=== PATIENT | female | born 1960 | race Caucasian/White ===

== ENCOUNTER 2019-08-23 01:38 | Emergency (ER) | payer BC ==
[2019-08-23] MEDS ORDERED: Zofran 4 MG/2 ML VIAL IV ONE (01:51)
[2019-08-23] MEDS ORDERED: Pepcid 20 MG VIAL IV ONE ×2 (01:51→02:20)
[2019-08-23] MEDS ORDERED: PROTONIX 40 MG IV IV ONE ×2 (01:51→02:21)
[2019-08-23] MEDS ORDERED: Sodium Chloride 0.9% 1000 ML 1,000 ML IV STA (01:51)
[2019-08-23] MEDS ORDERED: BENADRYL 50 MG/ML IV ONE (01:51)
[2019-08-23] MEDS ORDERED: MORPHINE SULFATE 4 MG INJ IV ONE (01:51)
--- NOTE | 2019-08-23 01:51 | ERPHSYRPT ---
- History of Present Illness Time Seen by Provider: 08/23/19 01:48 Historian: patient, family Exam Limitations: no limitations Physician History: pt is 58 year old with epigastric pain radiating bilateral and her identical twin previously had GB dx; some vomiting, no trauma; not short of breath Timing/Duration: today Activities at Onset: none Quality: sharpness, stabbing Abdominal Pain Onset Location: RUQ, LUQ, epigastric Pain Radiation: chest Severity of Pain-Max: moderate Severity of Pain-Current: moderate Modifying Factors: Improves With: vomiting Associated Symptoms: nausea, vomiting Previous symptoms: no prior history Allergies/Adverse Reactions: No Known Drug Allergies Allergy (Unverified 08/23/19 02:03) Home Medications: Sertraline HCl 100 mg PO DAILY 08/23/19 [History] - Review of Systems Constitutional: No Fever, No Chills Eyes: No Symptoms Ears, Nose, & Throat: No Symptoms Respiratory: No Cough, No Dyspnea Cardiac: Chest Pain, No Edema, No Syncope Abdominal/Gastrointestinal: Abdominal Pain, Nausea, Vomiting, No Diarrhea Genitourinary Symptoms: No Dysuria Musculoskeletal: No Back Pain, No Neck Pain Skin: No Rash Neurological: No Dizziness, No Focal Weakness, No Sensory Changes Psychological: No Symptoms Endocrine: No Symptoms All Other Systems: Reviewed and Negative - Past Medical History Pertinent Past Medical History: Yes Neurological History: No Pertinent History Cardiac History: No Pertinent History Respiratory History: Bronchitis Endocrine Medical History: No Pertinent History Musculoskeletal History: Arthritis - Nursing Vital Signs Nursing Vital Signs: Initial Vital Signs Temperature 97.8 F 08/23/19 01:41 Pulse Rate 89 08/23/19 01:41 Respiratory Rate 14 08/23/19 01:41 Blood Pressure 153/97 08/23/19 01:41 O2 Sat by Pulse Oximetry 99 08/23/19 01:41 Pain Scale Pain Intensity 0 - Physical Exam General Appearance: no apparent distress, alert Eye Exam: PERRL/EOMI, eyes nml inspection Ears, Nose, Throat Exam: normal ENT inspection, pharynx normal, moist mucous membranes Neck Exam: normal inspection, non-tender, supple, full range of motion Respiratory Exam: normal breath sounds, lungs clear, No respiratory distress Cardiovascular Exam: regular rate/rhythm, normal heart sounds Gastrointestinal/Abdomen Exam: soft, No tenderness, No mass Pelvic Exam: deferred Rectal Exam: deferred Back Exam: normal inspection, normal range of motion, No CVA tenderness, No vertebral tenderness Extremity Exam: normal inspection, normal range of motion, pelvis stable Neurologic Exam: alert, oriented x 3, cooperative, normal mood/affect, nml cerebellar function, sensation nml, No motor deficits Skin Exam: normal color, warm, dry - Course Nursing assessment & vital signs reviewed: Yes EKG Interpreted by Me: Sinus Rhythm, NORMAL AXIS, NORMAL INTERVALS, Non- specific ST Changes Ordered Tests: Active Orders 24 hr Category Date Time Status EKG-ER Only STAT Care 08/23/19 01:51 Active IV Insertion STAT Care 08/23/19 01:51 Active ABDOMEN AND PELVIS W/0 CONTRAS [CT] Stat Exams 08/23/19 01:52 Taken AMYLASE Stat Lab 08/23/19 02:19 Completed CBC W DIFF Stat Lab 08/23/19 02:19 Completed CMP Stat Lab 08/23/19 02:19 Completed LIPASE Stat Lab 08/23/19 02:19 Completed Lactic Acid Stat Lab 08/23/19 02:38 Completed TROPONIN Q3H Lab 08/23/19 02:19 Completed TROPONIN Q3H Lab 08/23/19 04:17 Completed TROPONIN Q3H Lab 08/23/19 08:00 Ordered TROPONIN Q3H Lab 08/23/19 11:00 Ordered TROPONIN Q3H Lab 08/23/19 14:00 Ordered UA W/RFX UR CULTURE Stat Lab 08/23/19 02:42 Completed Medication Summary Discontinued Medications Generic Name Dose Route Start Last Admin Trade Name Freq PRN Reason Stop Dose Admin Diphenhydramine HCl 25 mg 08/23/19 01:51 08/23/19 02:44 Benadryl 50 Mg/Ml IV 08/23/19 01:52 25 mg STAT ONE Administration Diphenhydramine HCl Confirm 08/23/19 02:20 Benadryl 50 Mg/Ml Administered 08/23/19 02:21 Dose 50 mg .ROUTE .STK-MED ONE Famotidine 20 mg 08/23/19 01:51 08/23/19 02:43 Pepcid 20 Mg Vial IV 08/23/19 01:52 20 mg STAT ONE Administration Famotidine Confirm 08/23/19 02:20 Pepcid 20 Mg Vial Administered 08/23/19 02:21 Dose 20 mg IV .STK-MED ONE Sodium Chloride 1,000 mls @ 999 mls/hr 08/23/19 01:51 08/23/19 03:27 Sodium Chloride 0.9% 1000 Ml IV 08/23/19 02:51 Infused .Q1H1M STA Infusion Sodium Chloride Confirm 08/23/19 02:21 Sodium Chloride 0.9% 1000 Ml Administered 08/23/19 02:22 Dose 1,000 mls @ ud .ROUTE .STK-MED ONE Morphine Sulfate 4 mg 08/23/19 01:51 08/23/19 02:43 Morphine Sulfate 4 Mg Inj IV 08/23/19 01:52 4 mg STAT ONE Administration Morphine Sulfate Confirm 08/23/19 02:21 Morphine Sulfate 4 Mg Inj Administered 08/23/19 02:22 Dose 4 mg .ROUTE .STK-MED ONE Ondansetron HCl 4 mg 08/23/19 01:51 08/23/19 02:31 Zofran 4 Mg/2 Ml Vial IV 08/23/19 01:52 4 mg STAT ONE Administration Ondansetron HCl Confirm 08/23/19 02:20 Zofran 4 Mg/2 Ml Vial Administered 08/23/19 02:21 Dose 4 mg .ROUTE .STK-MED ONE Pantoprazole Sodium 40 mg 08/23/19 01:51 08/23/19 02:45 Protonix 40 Mg Iv IV 08/23/19 01:52 40 mg STAT ONE Administration Pantoprazole Sodium Confirm 08/23/19 02:21 Protonix 40 Mg Iv Administered 08/23/19 02:22 Dose 40 mg IV .STK-MED ONE Lab/Rad Data: Laboratory Result Diagrams 08/23/19 02:19 08/23/19 02:19 Laboratory Results 08/23/19 08/23/19 08/23/19 Range/Units 04:17 02:42 02:38 WBC (4.0-10.5) K/mm3 RBC (4.1-5.4) M/mm3 Hgb (12.0-16.0) gm/dl Hct (35-47) % MCV (78-100) fl MCH (26-32) pg MCHC (32-36) g/dl RDW (11.5-14.0) % Plt Count (150-450) K/mm3 MPV (6-9.5) fl Gran % (36.0-66.0) % Eos # (Auto) (0-0.5) Absolute Lymphs (auto) (1.0-4.6) Absolute Monos (auto) (0.0-1.3) Lymphocytes % (24.0-44.0) % Monocytes % (0.0-12.0) % Eosinophils % (0.00-5.0) % Basophils % (0.0-0.4) % Absolute Granulocytes (1.4-6.9) Basophils # (0-0.4) Sodium (137-145) mmol/L Potassium (3.5-5.1) mmol/L Chloride (98-107) mmol/L Carbon Dioxide (22-30) mmol/L Anion Gap (5-15) MEQ/L BUN (7-17) mg/dL Creatinine (0.52-1.04) mg/dL Estimated GFR ML/MIN Glucose (74-106) mg/dL Lactic Acid 1.2 (0.4-2.0) Calcium (8.4-10.2) mg/dL Total Bilirubin (0.2-1.3) mg/dL AST (14-36) U/L ALT (0-35) U/L Alkaline Phosphatase (38-126) U/L Troponin I < 0.012 (0.000-0.034) ng/mL Serum Total Protein (6.3-8.2) g/dL Albumin (3.5-5.0) g/dL Amylase (30-110) U/L Lipase (23-300) U/L Urine Color YELLOW (YELLOW) Urine Appearance SLIGHTLY CLOUDY (CLEAR) Urine pH 5.0 (5-6) Ur Specific Hamilton 1.021 (1.005-1.025) Urine Protein NEGATIVE (Negative) Urine Ketones NEGATIVE (NEGATIVE) Urine Blood NEGATIVE (0-5) Brandin/ul Urine Nitrite NEGATIVE (NEGATIVE) Urine Bilirubin NEGATIVE (NEGATIVE) Urine Urobilinogen NEGATIVE (0-1) mg/dL Ur Leukocyte Esterase TRACE (NEGATIVE) Urine WBC (Auto) 6-10 (0-5) /HPF Urine RBC (Auto) 0-2 (0-2) /HPF U Epithel Cells (Auto) NONE (FEW) /HPF Urine Bacteria (Auto) NONE (NEGATIVE) /HPF Urine Mucus (Auto) SLIGHT (NEGATIVE) /HPF Urine Culture Reflexed NO (NO) Urine Glucose NEGATIVE (NEGATIVE) mg/dL 08/23/19 08/23/19 08/23/19 Range/Units 02:19 02:19 02:19 WBC 8.3 (4.0-10.5) K/mm3 RBC 4.83 (4.1-5.4) M/mm3 Hgb 13.8 (12.0-16.0) gm/dl Hct 42.3 (35-47) % MCV 87.6 (78-100) fl MCH 28.6 (26-32) pg MCHC 32.6 (32-36) g/dl RDW 15.5 H (11.5-14.0) % Plt Count 246 (150-450) K/mm3 MPV 10.3 H (6-9.5) fl Gran % 70.7 H (36.0-66.0) % Eos # (Auto) 0.30 (0-0.5) Absolute Lymphs (auto) 1.53 (1.0-4.6) Absolute Monos (auto) 0.58 (0.0-1.3) Lymphocytes % 18.5 L (24.0-44.0) % Monocytes % 7.0 (0.0-12.0) % Eosinophils % 3.6 (0.00-5.0) % Basophils % 0.2 (0.0-0.4) % Absolute Granulocytes 5.86 (1.4-6.9) Basophils # 0.02 (0-0.4) Sodium 142 (137-145) mmol/L Potassium 3.7 (3.5-5.1) mmol/L Chloride 105 (98-107) mmol/L Carbon Dioxide 30 (22-30) mmol/L Anion Gap 10.8 (5-15) MEQ/L BUN 19 H (7-17) mg/dL Creatinine 0.67 (0.52-1.04) mg/dL Estimated GFR > 60.0 ML/MIN Glucose 110 H (74-106) mg/dL Lactic Acid (0.4-2.0) Calcium 10.2 (8.4-10.2) mg/dL Total Bilirubin 0.40 (0.2-1.3) mg/dL AST 35 (14-36) U/L ALT 42 H (0-35) U/L Alkaline Phosphatase 81 (38-126) U/L Troponin I < 0.012 (0.000-0.034) ng/mL Serum Total Protein 7.8 (6.3-8.2) g/dL Albumin 4.4 (3.5-5.0) g/dL Amylase 71 (30-110) U/L Lipase 73 (23-300) U/L Urine Color (YELLOW) Urine Appearance (CLEAR) Urine pH (5-6) Ur Specific Hamilton (1.005-1.025) Urine Protein (Negative) Urine Ketones (NEGATIVE) Urine Blood (0-5) Brandin/ul Urine Nitrite (NEGATIVE) Urine Bilirubin (NEGATIVE) Urine Urobilinogen (0-1) mg/dL Ur Leukocyte Esterase (NEGATIVE) Urine WBC (Auto) (0-5) /HPF Urine RBC (Auto) (0-2) /HPF U Epithel Cells (Auto) (FEW) /HPF Urine Bacteria (Auto) (NEGATIVE) /HPF Urine Mucus (Auto) (NEGATIVE) /HPF Urine Culture Reflexed (NO) Urine Glucose (NEGATIVE) mg/dL - Progress Progress: improved, re-examined Progress Note: 08/23/19 04:12 pt has heart score of 3 based upon age of 58 - 1 pt. family hx given 1 pt. no other known risk factors - nonsmoker no htpn no known cholest or DM slightly abn ekg - 1 pt. discussed risk/benefits with pt and she is comfortable with this level of risk and prefers DC with outpt f/u without adm or further w/u in er and has the capacity to make that choice. she is advised to f/u the lung nodules with her PCP also Counseled pt/family regarding: lab results, diagnosis, need for follow-up, rad results - Departure Departure Disposition: Home Clinical Impression: Epigastric abdominal pain of unknown etiology Condition: Good Critical Care Time: No Referrals: MARIANO ANDERSON [Primary Care Provider] - Instructions: Acid Reflux (Gastroesophageal Reflux Disease), Adult (DC), Acute Abdomen (Belly Pain), Adult (DC), Chest Pain (DC), Hiatal Hernia (DC) Additional Instructions: followup with your dr also for lung nodules. although your heart risk is low it still cannot be completely excluded by the testing performed and you should have furhter testing by your dr for both that and the abdominal pain; return meantime if any further symptoms of concern. try over the counter pepcid which is similar to some medicine given in ER to you.
[2019-08-23] MEDS ORDERED: Zofran 4 MG/2 ML VIAL ONE (02:20)
[2019-08-23] MEDS ORDERED: BENADRYL 50 MG/ML ONE (02:20)
[2019-08-23] MEDS ORDERED: Sodium Chloride 0.9% 1000 ML 1,000 ML ONE (02:21)
[2019-08-23] MEDS ORDERED: MORPHINE SULFATE 4 MG INJ ONE (02:21)
[2019-08-23 02:22] LABS: Absolute Neutrophil Ct (ANC) 5.86 (1.4-6.9); BASOPHIL % 0.2 % (0.0-0.4); Basophil (Absolute #) 0.02 (0-0.4); Eosinophil % 3.6 % (0.00-5.0); Hematocrit 42.3 % (35-47); Hemoglobin 13.8 gm/dl (12.0-16.0); Lymphocyte (Absolute #) 1.53 (1.0-4.6); Lymphocytes % 18.5 % (24.0-44.0); Mean Cell Volume 87.6 fl (78-100); Mean Corpuscular Hemoglobin 28.6 pg (26-32); Mean Corpuscular Hgb Concent. 32.6 g/dl (32-36); Mean Platelet Volume 10.3 fl (6-9.5); Monocyte (Absolute #) 0.58 (0.0-1.3); Neutrophil % 70.7 % (36.0-66.0); Platelet Count 246 K/mm3 (150-450); Red Blood Count 4.83 M/mm3 (4.1-5.4); Red Cell Distribution Width 15.5 % (11.5-14.0); White Blood Count 8.3 K/mm3 (4.0-10.5)
[2019-08-23 02:35] LABS: ALBUMIN 4.4 g/dL (3.5-5.0); ALKALINE PHOSPHATASE 81 U/L (38-126); AMYLASE 71 U/L (30-110); ANION GAP 10.8 MEQ/L (5-15); BLOOD UREA NITROGEN 19 mg/dL (7-17); CHLORIDE 105 mmol/L (98-107); Calcium 10.2 mg/dL (8.4-10.2); Carbon Dioxide 30 mmol/L (22-30); Creatinine 1 0.67 mg/dL (0.52-1.04); Glucose 110 mg/dL (74-106); LIPASE 73 U/L (23-300); Potassium 3.7 mmol/L (3.5-5.1); SGOT/AST 35 U/L (14-36); SGPT/ALT 42 U/L (0-35); SODIUM 142 mmol/L (137-145); Total Protein 7.8 g/dL (6.3-8.2)
[2019-08-23 02:54] LABS: Appearance SLIGHTLY CLOUDY (CLEAR); Bilirubin NEGATIVE (NEGATIVE); Blood NEGATIVE Ery/ul (0-5); Glucose NEGATIVE (NEGATIVE); Ketones NEGATIVE (NEGATIVE); Leukocyte Esterase TRACE (NEGATIVE); Mucus SLIGHT /HPF (NEGATIVE); Nitrite NEGATIVE (NEGATIVE); Protein,Urine Dip NEGATIVE (Negative); RBC 0-2 /HPF (0-2); Specific Gravity 1.021 (1.005-1.025); Urobilinogen NEGATIVE mg/dL (0-1)
[2019-08-23 05:41] VITALS: BP 114/72; PULSE 90; O2SAT 94
--- NOTE | 2019-08-23 07:33 | XRAY ---
Indication: Epigastric pain, nausea, and vomiting. Multiple contiguous axial images obtained through the abdomen and pelvis without contrast as ordered. Comparison: November 23, 2010. Lung bases again demonstrates tiny left base calcified granulomas. No infiltrate or effusion. Heart is not enlarged. New small hiatal hernia. Noncontrasted stomach and bowel loops appear nonobstructed. Normal appendix. No free fluid/air. There has been interval hysterectomy. Remaining liver, gallbladder, pancreas, liver, spleen, adrenal glands, kidneys, ureters, and bladder appear unremarkable for noncontrast exam. Minimal aortoiliac calcifications without AAA. Osseous structures intact again with mild degenerative changes throughout the spine. New 4 mm L4 spondylolisthesis. Impression: 1. New small hiatal hernia with stable left lung base calcified granulomas. 2. Mild degenerative spondylosis and grade 1 L4 spondylolisthesis. 3. Remaining CT abdomen/pelvis without contrast exam is negative. Comment: Preliminary interpretation was made by C. No critical discrepancy. CTDI 20.86
== END 2019-08-23 05:41 | disposition home or self-care (01) ==
LOC: ED 01:38
DX: R10.13 Epigastric pain (principal)
CPT/HCPCS: 36000; 36415; 74176; 80053; 81001; 82150; 83605; 83690; 84484; 85025; 93005; 96360; 96374; 96375; 99285; J1200; J2270; J2405

== ENCOUNTER 2020-05-07 07:26 | Day surgery (SDC) | payer BC ==
--- NOTE | 2020-04-16 13:15 | HP ---
DATE OF SURGERY: 04/23/2020 HISTORY OF PRESENT ILLNESS: The patient presented to the office with right upper quadrant pain. She states that she had a couple of bad attacks in the past few months. There is some nausea and diarrhea with this. She had an ultrasound that had multiple gallstones. PAST MEDICAL HISTORY: Depression. PAST SURGICAL HISTORY: Two sections. Hysterectomy. ALLERGIES: NKDA. MEDICATIONS: Sertraline. FAMILY HISTORY: Heart disease, Alzheimer's, cancer. SOCIAL HISTORY: Negative. REVIEW OF SYSTEMS: CONSTITUTIONAL: Denies fever or chills. CHEST: Denies shortness of breath. CVS: Denies chest pain. ABDOMEN: Reports right upper quadrant pain, occasional nausea, vomiting and diarrhea. Denies constipation or rectal bleeding. : Denies dysuria or hematuria. PHYSICAL EXAMINATION: GENERAL: No acute distress. CHEST: Nonlabored. No shortness of breath. CVS: Regular rate and rhythm. ABDOMEN: Soft, tender to palpation right upper quadrant. EXTREMITIES: No edema. INTEGUMENTARY: Warm, pink, no rash. NEUROLOGIC: Alert. PSYCHIATRIC: Appropriate. IMPRESSION: Symptomatic cholelithiasis. PLAN: Laparoscopic cholecystectomy possible open with Dr. Dave Vergara. As dictated by Karma Wright NP.
--- NOTE | 2020-05-04 12:11 | HP ---
DATE OF SURGERY: 05/07/2020 HISTORY OF PRESENT ILLNESS: The patient presents to the office with right upper quadrant pain. She reports that she had a couple of bad attacks recently, this has been going on for some time. She had an ultrasound of her gallbladder showing cholelithiasis. PAST MEDICAL HISTORY: Depression. PAST SURGICAL HISTORY: Two sections. Hysterectomy. ALLERGIES: NKDA. MEDICATIONS: Sertraline. FAMILY HISTORY: Heart disease, Alzheimer's, cancer. SOCIAL HISTORY: Negative. REVIEW OF SYSTEMS: CONSTITUTIONAL: Denies fever or chills. CHEST: Denies shortness of breath. CVS: Denies chest pain. ABDOMEN: Reports right upper quadrant pain. Denies nausea, vomiting, diarrhea, constipation or rectal bleeding. : Denies dysuria or hematuria. PHYSICAL EXAMINATION: GENERAL: No acute distress. CHEST: Nonlabored. No shortness of breath. CVS: Regular rate and rhythm. ABDOMEN: Soft, right upper quadrant tender to palpation. EXTREMITIES: No edema. NEUROLOGIC: Alert. PSYCHIATRIC: Appropriate. IMPRESSION: Symptomatic cholelithiasis. PLAN: Laparoscopic cholecystectomy with Dr. Dave Vergara. As dictated by Karma Wright NP.
[~2020-05-07 07:26] MED LIST: Lactated Ringers 0 ML IV ONE; Sensorcaine 0.25% 10 ML ONE
[2020-05-07] MEDS ORDERED: Lactated Ringers 1,000 ML IV ONE (07:41)
[2020-05-07] MEDS ORDERED: Sensorcaine 0.25% 10 ML ONE (07:41)
[2020-05-07] MEDS ORDERED: MEFOXIN 2 GM PREMIX** 2 GM/50 ML ML IV SCH (08:00)
[2020-05-07] MEDS ORDERED: Lactated Ringers 1,000 ML IV SCH (08:00)
[2020-05-07] MEDS ORDERED: Decadron 4 MG INJ ONE (09:56)
[2020-05-07] MEDS ORDERED: SUBLIMAZE 100 MCG/2 ML ONE ×2 (09:56→10:57)
[2020-05-07] MEDS ORDERED: Zemuron 100 MG/10 ML ONE (09:56)
[2020-05-07] MEDS ORDERED: TORAdol 30 mg Injection ONE (09:56)
[2020-05-07] MEDS ORDERED: DIPRIVAN 200 MG/20 ML IV ONE (09:56)
[2020-05-07] MEDS ORDERED: Zofran 4 MG/2 ML VIAL ONE (09:56)
[2020-05-07] MEDS ORDERED: BRIDION 200MG/2ML IV ONE (09:56)
[2020-05-07] MEDS ORDERED: Xylocaine-Mpf 2% 5 Ml Vial ONE (09:56)
[2020-05-07] MEDS ORDERED: NORCO 5/325 MG PO PRN (10:05)
[2020-05-07] MEDS ORDERED: DILAUDID 2 MG INJECTION ONE (11:01)
[2020-05-07] MEDS ORDERED: DEMEROL 50 MG ONE (11:24)
[2020-05-07 13:09] VITALS: BP 132/70; PULSE 99; O2SAT 93
--- NOTE | 2020-05-07 13:43 | OP ---
SURGERY DATE/TIME: 05/07/2020 0956 PREOPERATIVE DIAGNOSIS: Symptomatic cholelithiasis. POSTOPERATIVE DIAGNOSIS: Symptomatic cholelithiasis. PROCEDURE: Laparoscopic cholecystectomy. SURGEON: Dr. Dave Vergara. ANESTHESIA: General endotracheal tube by Juan Pablo Raymond CRNA. ESTIMATED BLOOD LOSS: None. DRAINS: None. COMPLICATIONS: None. CONDITION: Stable. INDICATIONS: A patient with upper abdominal pain, ultrasound positive. Seen and examined. Procedure discussed. DESCRIPTION OF PROCEDURE AND FINDINGS: Taken to surgery. General anesthetic, routine prep and drape. Veress needle supraumbilical. Insufflating pressure 14. Four - 5's. Good visualization. Gallbladder was packed with stones. Infundibulum inspected. Cystic duct defined. Cystic artery defined. A 1.5 inch window was totally clear. At this time both structures triply clipped and transected. Clips noted across and well approximated. Gallbladder rolled out of gallbladder fossa. The gallbladder delivered through upper abdominal port with slight widening. Hole closure device was deliberately used and good closure obtained with 0 Vicryl. Field was totally dry. CO2 was exsufflated and ports were watched on the way out as best as possible. Skin closed with 4-0 Vicryl and Steri-Strips. The patient tolerated the procedure satisfactorily.
== END 2020-05-07 13:20 | disposition home or self-care (01) ==
LOC: SDC 07:26
PROVIDERS: ATTEND Surgery
DX: K80.20 Calculus of gallbladder without cholecystitis without obstruction (principal); R11.0 Nausea; R19.7 Diarrhea, unspecified
CPT/HCPCS: 88304; J0694; J1100; J1170; J1885; J2175; J2405; J2704; J3010